=== PATIENT | male | born 1950 | race Caucasian/White ===

== ENCOUNTER 2020-09-18 09:09 | Inpatient (IN) | payer BC, MEDICARE ==
[2020-09-18] MEDS ORDERED: Morphine 2 MG/ML SYRINGE IVPUSH ONE ×2 (09:46→12:13)
[2020-09-18] MEDS ORDERED: Sodium Chloride 0.9% 10 ML Syringe FLUSH PRN (12:10)
[2020-09-18] MEDS ORDERED: Sodium Chloride 0.9% 10 ML SDV IV PRN (12:10)
[2020-09-18] MEDS ORDERED: Sodium Chloride 0.9% 2.5 ML Syringe FLUSH PRN (12:10)
--- NOTE | 2020-09-18 12:53 | PCM.PREANE ---
Preanesthetic Assessment - Anesthesia/Transfusion/Family Hx Anesthesia History: Prior Anesthesia Without Reaction Family History of Anesthesia Reaction: No Transfusion History: Unknown Intubation History: Unknown - Review of Systems General: No Symptoms Pulmonary: No Symptoms Cardiovascular: No Symptoms Gastrointestinal: No Symptoms Neurological: No Symptoms Other: Reports: None - Physical Assessment Vital Signs: Last Vital Signs Temp Pulse 92 09/18/20 09:41 Resp 16 09/18/20 09:41 BP 162/87 H 09/18/20 09:41 Pulse Ox 94 L 09/18/20 09:41 Height: 5 ft Weight: 92.986 kg ASA Class: 3E Mental Status: Alert & Oriented x3 Airway Class: Mallampati = 2 Dentition: Reports: Dentures (upper and lower) Thyro-Mental Finger Breadths: 3 Mouth Opening Finger Breadths: 2 (small mouth) ROM/Head Extension: Limited/Partial Lungs: Clear to Auscultation, Normal Respiratory Effort Cardiovascular: Regular Rate, Regular Rhythm - Lab Values: Laboratory Last Values WBC 9.39 K/uL (4.0-11.0) 09/18/20 10:08 RBC 4.20 M/uL (4.50-5.90) L 09/18/20 10:08 Hgb 10.0 g/dL (13.0-17.0) L 09/18/20 10:08 Hct 33.1 % (38.0-50.0) L 09/18/20 10:08 MCV 78.8 fL (80.0-98.0) L 09/18/20 10:08 MCH 23.8 pg (27.0-32.0) L 09/18/20 10:08 MCHC 30.2 g/dL (31.0-37.0) L 09/18/20 10:08 RDW Std Deviation 46.6 fl (28.0-62.0) 09/18/20 10:08 RDW Coeff of Star 16 % (11.0-15.0) H 09/18/20 10:08 Plt Count 467 K/uL (150-400) H 09/18/20 10:08 MPV 9.90 fL (7.40-12.00) 09/18/20 10:08 Add Manual Diff YES 09/18/20 10:08 Neutrophils % (Manual) 71 % (48.0-80.0) 09/18/20 10:08 Band Neutrophils % 2 % 09/18/20 10:08 Lymphocytes % (Manual) 14 % (16.0-40.0) L 09/18/20 10:08 Monocytes % (Manual) 10 % (0.0-15.0) 09/18/20 10:08 Eosinophils % (Manual) 3 % (0.0-7.0) 09/18/20 10:08 Nucleated RBC % 0.0 /100WBC 09/18/20 10:08 Absolute Seg Neuts 6.7 (1.4-5.7) H 09/18/20 10:08 Band Neutrophils # 0.2 09/18/20 10:08 Lymphocytes # (Manual) 1.3 (0.6-2.4) 09/18/20 10:08 Monocytes # (Manual) 0.9 (0.0-0.8) H 09/18/20 10:08 Eosinophils # (Manual) 0.3 (0.0-0.7) 09/18/20 10:08 Nucleated RBCs # 0 K/uL 09/18/20 10:08 - Allergies Allergies/Adverse Reactions: Allergies Allergy/AdvReac Type Severity Reaction Status Date / Time No Known Allergies Allergy Verified 08/24/15 07:46 - Blood Blood Available: No - Anesthesia Plan Pre-Op Medication Ordered: None - Acknowledgements Anesthesia Type Planned: General Anesthesia Pt an Appropriate Candidate for the Planned Anesthesia: Yes Alternatives and Risks of Anesthesia Discussed w Pt/Guardian: Yes Pt/Guardian Understands and Agrees with Anesthesia Plan: Yes PreAnesthesia Questionnaire Other HEENT History: Tonsillitis Cardiovascular History: Reports: CAD, High Cholesterol, Hypertension, [place], Stents (at age 56, sustained heart atack- [place] since) Other Cardiovascular History: HTN, STENTS, HEART ATTACK Gastrointestinal History: Reports: GERD Genitourinary History: Reports: Other (See Below) (h/o prostate cancer '15 , urinary bleening and retention at present time) Other Genitourinary History: elevated PSA Endocrine/Metabolic History: Reports: Obesity/BMI 30+ (BMI 40.0) Other Endocrine/Metabolic History: BORDERLINE DIABETIC - Past Surgical History HEENT Surgical History: Reports: Tonsillectomy GI Surgical History: Reports: Appendectomy, Colon (colon resection for perforation), Colonoscopy Male Surgical History: Reports: Prostatectomy, Other (See Below) (ureteral stent placed 09/04) - HOME MEDS Home Medications: Home Meds Aspirin [[place] Aspirin EC] 81 mg PO DAILY 08/24/15 [History] Metoprolol Tartrate [Lopressor] 12.5 mg PO DAILY 08/24/15 [History] Olmesartan [Benicar] 20 mg PO DAILY 08/24/15 [History] Pantoprazole Sodium [Protonix] 40 mg PO DAILY 08/24/15 [History] Simvastatin [Zocor] 40 mg PO BEDTIME 08/24/15 [History] Cephalexin [Keflex] 500 mg PO QID #40 cap 08/28/15 [Rx] Hydrocodone/Acetaminophen [Lorcet 5-325 mg Tablet] 1 each PO Q4HR PRN #30 tablet 08/28/15 [Rx] - CURRENT (IN HOUSE) MEDS Current Meds: Current Medications Sodium Chloride (Saline Flush) 10 ml FLUSH ASDIRECTED PRN PRN Reason: Keep Vein Open Sodium Chloride (Saline Flush) 2.5 ml FLUSH ASDIRECTED PRN PRN Reason: Keep Vein Open Sodium Chloride (Normal Saline) 10 ml IV ASDIRECTED PRN PRN Reason: IV Use Discontinued Medications Morphine Sulfate (Morphine) 1 mg IVPUSH ONETIME ONE Stop: 09/18/20 09:47 Last Admin: 09/18/20 11:25 Dose: 1 mg Documented by: Morphine Sulfate (Morphine) 1 mg IVPUSH ONETIME ONE Stop: 09/18/20 12:14
[2020-09-18] MEDS ORDERED: Midazolam 1 MG/ML 2 ML SDV ONE (13:10)
[2020-09-18] MEDS ORDERED: fentaNYL 100 MCG/2 ML SDV ONE ×2 (13:10→15:02)
[2020-09-18] MEDS ORDERED: Propofol 200 MG/20 ML SDV ONE (13:10)
[2020-09-18 13:11] LABS: BLOOD UREA NITROGEN,BUN 26 mg/dL (7.0-18.0); CARBON DIOXIDE,CO2 24.5 mmol/L (21.0-32.0); CHLORIDE,CL 99 mmol/L (98-107); GLUCOSE RANDOM 238 mg/dL (74-106); POTASSIUM,K 3.9 mmol/L (3.5-5.1); SODIUM,NA 135 mmol/L (136-148)
[2020-09-18] MEDS ORDERED: Glycopyrrolate 0.2 MG/ML SDV ONE ×2 (13:13→14:32)
[2020-09-18] MEDS ORDERED: Lidocaine 2% 5 ML SDV ONE (13:13)
[2020-09-18] MEDS ORDERED: Ondansetron 4 MG/2 ML SDV ONE (13:13)
[2020-09-18] MEDS ORDERED: Phenylephrine 1% 10 MG/ML SDV ONE (13:15)
[2020-09-18] MEDS ORDERED: Acetaminophen 1,000 MG in Premix Bag 1 BAG IV PRN (13:24)
[2020-09-18] MEDS ORDERED: Iopamidol 408 MG/ML 20 ML SDV ONE ×2 (14:09→15:23)
[2020-09-18] MEDS ORDERED: ceFAZolin 1 GM Vial ONE (14:16)
[2020-09-18] MEDS ORDERED: Sodium Chloride 0.9% 20 ML ONE (14:16)
[2020-09-18] MEDS ORDERED: Rocuronium Bromide 50 MG/5 ML Syringe ONE ×2 (14:32→15:05)
[2020-09-18] MEDS ORDERED: fentaNYL 250 MCG/5 ML SDV ONE (15:05)
[2020-09-18] MEDS: fentaNYL 100 MCG/2 ML SDV IVPUSH PRN ×2 (17:25→17:32)
--- NOTE | 2020-09-18 17:48 | PCM.POSTAN ---
POST ANESTHESIA ASSESSMENT - MENTAL STATUS Mental Status: Alert, Oriented - VITAL SIGNS Vital Signs: Last Vital Signs Temp 36.9 C 09/18/20 17:00 Pulse 76 09/18/20 17:40 Resp 16 09/18/20 17:40 BP 127/68 09/18/20 17:40 Pulse Ox 97 09/18/20 17:40 - RESPIRATORY Respiratory Status: Respiratory Rate WNL, Airway Patent, O2 Saturation Stable - CARDIOVASCULAR CV Status: Pulse Rate WNL, Blood Pressure Stable - GASTROINTESTINAL GI Status: No Symptoms - PAIN Pain Score: 3 - POST OP HYDRATION Hydration Status: Adequate & Stable - OBSERVATIONS Free Text/Narrative:: No anesthesia problems
[2020-09-18] MEDS: ceFAZolin 1 GM in Premix Bag 1 BAG IV SCH (19:02)
[2020-09-18] MEDS: Acetaminophen/oxyCODONE 325-5 MG Tab PO PRN (20:38)
[2020-09-18] MEDS: Docusate Sodium 100 MG Cap PO SCH (20:39)
[2020-09-18] MEDS: Bacitracin Oint 28.35 GM Tube TOP SCH (21:55)
[2020-09-19] MEDS: fentaNYL 100 MCG/2 ML SDV IVPUSH PRN ×2 (00:07→04:12)
[2020-09-19] MEDS: ceFAZolin 1 GM in Premix Bag 1 BAG IV SCH ×3 (00:20→19:26)
[2020-09-19] MEDS: Lactated Ringers 1,000 ML IV SCH (00:21)
[2020-09-19] MEDS: Acetaminophen/oxyCODONE 325-5 MG Tab PO PRN ×4 (02:28→22:10)
[2020-09-19] MEDS: Bacitracin Oint 28.35 GM Tube TOP SCH ×3 (05:52→22:12)
[2020-09-19] MEDS ORDERED: Metoprolol Tartrate 25 MG Tab PO SCH (09:00)
--- NOTE | 2020-09-19 09:21 | HP ---
DATE OF : 1950 PRIMARY CARE PHYSICIAN: None PCP HISTORY OF PRESENT ILLNESS: A 70-year-old. He was seen initially in the office yesterday with gross hematuria that apparently had started approximately 10 days ago. He had aortofemoral stents put in in [place] and was catheterized the following day because he could not void. The catheter was taken out, and he still could not void, so urologist was called and there was difficulty putting a catheter in so the urethra had to be dilated, according to the patient, and eventually a catheter was placed in, and he was sent home. A few days following that, he actually presented to the emergency room in [place], where a three-way irrigation was started. Again, there was difficulty putting a catheter in. I saw him in the office yesterday. He did have a catheter in that was erratic in the way it was draining, so I put a six-hole catheter in the bladder and irrigated blood clots out of the bladder and then sent him home because he did not have difficulty voiding on his own prior to all this. In 2014, he had radical prostatectomy that was followed with radiation therapy and his PSA is 0, so there is no reason to suspect recurrent CA. He also had a CT scan in May that included abdomen and pelvis that showed a normal bladder wall. So he was admitted to the hospital here after he was having difficulty draining his bladder with the catheter, and he was kept overnight in [place] with a TUR drip running that required frequent irrigation of the three-way catheter and so far that was the reason for his admission. Earlier today, I put a six-hole catheter in, and I could not get very far with that. Eventually, the fluid would go in, but it would not come back. So I decided to take a look inside his bladder. MEDICAL HISTORY: Radical prostatectomy, vascular disease, [place] in 1956. He also had a cardiac stent. He has not been on anticoagulants. PHYSICAL EXAMINATION: GENERAL: He is alert and oriented. VITAL SIGNS: Normal. His hemoglobin this morning was 10. HEART: Normal sinus rhythm. LUNGS: Clear. ABDOMEN: Soft. DIAGNOSIS: Gross hematuria. PLAN: Cystoscopy and evacuation of clots. DENISHA / VITA /[id number]
--- NOTE | 2020-09-19 09:34 | PCM48HPAN ---
Post Anesthesia Note - EVALUATION WITHIN 48HRS OF ANESTHETIC Vital Signs in Normal Range: Yes Patient Participated in Evaluation: Yes Respiratory Function Stable: Yes Airway Patent: Yes Cardiovascular Function Stable: Yes Hydration Status Stable: Yes Pain Control Satisfactory: Yes Nausea and Vomiting Control Satisfactory: Yes Mental Status Recovered: Yes Vital Signs: Last Vital Signs Temp 37.9 C 09/19/20 07:30 Pulse 96 09/19/20 07:30 Resp 15 09/19/20 07:30 BP 131/62 09/19/20 07:30 Pulse Ox 92 L 09/19/20 07:30
[2020-09-19] MEDS: Docusate Sodium 100 MG Cap PO SCH ×2 (09:39→20:48)
[2020-09-19] MEDS: Pantoprazole 40 MG Tab.CR PO SCH (16:07)
[2020-09-19] MEDS ORDERED: Olmesartan 20 MG Tab PO SCH (17:45)
[2020-09-19] MEDS: Aspirin 81 MG Tab.EC PO SCH (18:33)
[2020-09-19] MEDS: Simvastatin 40 MG Tab PO SCH (20:48)
[2020-09-20] MEDS: ceFAZolin 1 GM in Premix Bag 1 BAG IV SCH ×3 (00:28→17:53)
[2020-09-20] MEDS: Lactated Ringers 1,000 ML IV SCH (00:30)
[2020-09-20] MEDS: Acetaminophen/oxyCODONE 325-5 MG Tab PO PRN ×3 (05:25→19:44)
[2020-09-20] MEDS: Bacitracin Oint 28.35 GM Tube TOP SCH ×3 (05:26→21:03)
[2020-09-20 06:30] LABS: CARBON DIOXIDE,CO2 28.9 mmol/L (21.0-32.0); POTASSIUM,K 3.6 mmol/L (3.5-5.1)
[2020-09-20] MEDS: Pantoprazole 40 MG Tab.CR PO SCH (08:57)
[2020-09-20] MEDS: Docusate Sodium 100 MG Cap PO SCH ×2 (08:57→21:03)
[2020-09-20] MEDS ORDERED: Metoprolol Succinate 25 MG Tab.ER PO SCH ×2 (09:00→10:10)
[2020-09-20] MEDS: Aspirin 81 MG Tab.EC PO SCH (09:08)
--- NOTE | 2020-09-20 11:30 | PCM.SN.2 ---
- Free Text/Narrative Note: 09/19 Stable , no more active bleeding, hgb 10. 09/20 stable hgb 7.8, urine bloody plan, transfuse 2 units of rbcs, keep him until bleeding stays away
[2020-09-20] MEDS: Belladonna Alkaloids/Opium 16.2-30 MG Supp RECTAL PRN (17:52)
[2020-09-20] MEDS: Simvastatin 40 MG Tab PO SCH (21:02)
[2020-09-21] MEDS: ceFAZolin 1 GM in Premix Bag 1 BAG IV SCH ×3 (00:22→16:45)
[2020-09-21] MEDS: Lactated Ringers 1,000 ML IV SCH ×3 (00:22→16:46)
[2020-09-21] MEDS: Acetaminophen/oxyCODONE 325-5 MG Tab PO PRN (02:34)
[2020-09-21] MEDS: Bacitracin Oint 28.35 GM Tube TOP SCH ×3 (05:34→22:41)
[2020-09-21] MEDS: Docusate Sodium 100 MG Cap PO SCH ×2 (08:22→20:33)
[2020-09-21] MEDS: Pantoprazole 40 MG Tab.CR PO SCH (08:22)
[2020-09-21] MEDS: Metoprolol Succinate 25 MG Tab.ER PO SCH (08:23)
[2020-09-21] MEDS: Aspirin 81 MG Tab.EC PO SCH (08:23)
[2020-09-21] MEDS: Simvastatin 40 MG Tab PO SCH (20:32)
[2020-09-22] MEDS: ceFAZolin 1 GM in Premix Bag 1 BAG IV SCH ×2 (01:58→11:00)
[2020-09-22] MEDS: Bacitracin Oint 28.35 GM Tube TOP SCH ×2 (07:00→14:12)
[2020-09-22] MEDS: Aspirin 81 MG Tab.EC PO SCH (10:53)
[2020-09-22] MEDS: Docusate Sodium 100 MG Cap PO SCH ×2 (10:54→20:56)
[2020-09-22] MEDS: Pantoprazole 40 MG Tab.CR PO SCH (10:54)
[2020-09-22] MEDS: Metoprolol Succinate 25 MG Tab.ER PO SCH (10:54)
--- NOTE | 2020-09-22 12:14 | OR ---
SURGEON: Murphy Martin M.D. DATE OF PROCEDURE: 09/18/2020 PRIMARY SURGEON: Murphy Martin M.D. GENETICS TEACHER: Dariusz Dahl MD PREOPERATIVE DIAGNOSES: 1. Gross hematuria. 2. Disrupted bladder neck. 3. Perforated bladder. POSTOPERATIVE DIAGNOSES: 1. Gross hematuria. 2. Disrupted bladder neck. 3. Perforated bladder. OPERATIONS: 1. Attempted evacuation of clots out of the bladder, unsuccessful. 2. Cystotomy. 3. Evacuation of clots. 4. Placement of a Alcantar catheter. DESCRIPTION: The patient was under general anesthesia. He was in the dorsal lithotomy position and prepped and draped with sterile drapes. Cystourethroscopy was done using a 22-Cypriot cystoscope. The urethra was disrupted just before the neck of the bladder. The neck of the bladder was also disrupted. The inside of the bladder was also disrupted. The inside of the bladder appeared to be full of blood clots. Attempted evacuation of the blood clots through the scope was not successful, could not get hardly any of the blood clots out. So while the scope was still in the bladder, I put a guidewire, over which I placed a 3-way catheter after I made an additional opening at the tip of the catheter. With that and the balloon then inflated with 20 mL, the patient was then placed in the supine position. The anterior abdominal was prepped and draped with sterile drapes. A suprapubic incision was made and carried down to the bladder, which was now distended. Approximately 600 mL of blood clots was recovered from the bladder until the bladder was completely without any blood clots. The bladder was then closed using 3-0 chromic for the mucosa and 2-0 chromic for the muscularis adventitia. The fascia was closed with interrupted silk sutures. The subcutaneous tissue was approximated with 3-0 chromic. Skin was closed with otto. Blood loss from the procedure was minimal, may be 10 mL. The patient tolerated the procedure well and was moved to the recovery room in good condition. DENISHA / VITA /[id number]
[2020-09-22] MEDS ORDERED: metroNIDAZOLE 250 MG Tab PO SCH (12:30)
[2020-09-22] MEDS: Simvastatin 40 MG Tab PO SCH (20:56)
[2020-09-23] MEDS: Belladonna Alkaloids/Opium 16.2-30 MG Supp RECTAL PRN ×3 (00:16→20:27)
[2020-09-23] MEDS: Bacitracin Oint 28.35 GM Tube TOP SCH ×4 (00:26→21:20)
--- NOTE | 2020-09-23 09:07 | PCM.SN.2 ---
- Free Text/Narrative Note: 09/21 Continues to require occasional irrigation of his bladder , stable otherwise, hgb 10 after 2 units of blood 09/22 no significant change, still requiring occasional irrigation. 09/23 should consider swing bed for him, stable but not free of small blood clots requiring occasional irrigation.
[2020-09-23] MEDS: Metoprolol Succinate 25 MG Tab.ER PO SCH (09:18)
[2020-09-23] MEDS: Pantoprazole 40 MG Tab.CR PO SCH (09:18)
[2020-09-23] MEDS: Docusate Sodium 100 MG Cap PO SCH ×2 (09:18→20:06)
[2020-09-23] MEDS: Aspirin 81 MG Tab.EC PO SCH (09:18)
--- NOTE | 2020-09-23 16:31 | CR ---
INDICATION: Stone TECHNIQUE: Intraoperative C-arm fluoroscopy for ureteroscopy. IMPRESSION: Intraoperative C-arm fluoroscopy was provided. Fluoroscopy time 11.8 seconds. Four images were captured. Dictated by Yoav Jeffrey MD @ Sep 23 2020 4:28PM Signed by Dr. Yoav Jeffrey @ Sep 23 2020 4:29PM
[2020-09-23] MEDS ORDERED: Morphine 2 MG/ML SYRINGE IVPUSH SCH (18:30)
[2020-09-23] MEDS: Simvastatin 40 MG Tab PO SCH (20:07)
[2020-09-23] MEDS: Morphine 2 MG/ML SYRINGE IVPUSH PRN ×2 (21:10→23:13)
[2020-09-24] MEDS: Morphine 2 MG/ML SYRINGE IVPUSH PRN ×7 (01:22→15:47)
[2020-09-24] MEDS: Bacitracin Oint 28.35 GM Tube TOP SCH ×3 (05:45→21:50)
[2020-09-24] MEDS: Pantoprazole 40 MG Tab.CR PO SCH (08:46)
[2020-09-24] MEDS: Metoprolol Succinate 25 MG Tab.ER PO SCH (08:46)
[2020-09-24] MEDS: Aspirin 81 MG Tab.EC PO SCH (08:46)
[2020-09-24] MEDS: Docusate Sodium 100 MG Cap PO SCH ×2 (08:48→21:49)
[2020-09-24] MEDS ORDERED: Morphine 2 MG/ML SYRINGE IVPUSH STA (09:14)
[2020-09-24] MEDS: Belladonna Alkaloids/Opium 16.2-30 MG Supp RECTAL PRN (12:07)
--- NOTE | 2020-09-24 17:49 | PCM.PREANE ---
Preanesthetic Assessment - Anesthesia/Transfusion/Family Hx Anesthesia History: Prior Anesthesia Without Reaction Family History of Anesthesia Reaction: No Transfusion History: Unknown Intubation History: Unknown - Review of Systems General: No Symptoms Pulmonary: No Symptoms Cardiovascular: No Symptoms (Denies chest pain. 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[employer].) Gastrointestinal: No Symptoms Neurological: No Symptoms Other: Reports: None - Physical Assessment NPO Status Date: 09/24/20 NPO Status Time: 08:00 (eggs 0800,jello 1100) Vital Signs: Last Vital Signs Temp 36.7 C 09/24/20 15:00 Pulse 80 09/24/20 15:00 Resp 16 09/24/20 15:00 BP 137/68 09/24/20 15:00 Pulse Ox 96 09/24/20 15:00 Height: 1.52 m Weight: 92.986 kg ASA Class: 3E Airway Class: Mallampati = 3 Dentition: Reports: Edentulous ROM/Head Extension: Full Lungs: Clear to Auscultation Cardiovascular: Regular Rate - Lab Values: Laboratory Last Values WBC 10.40 K/uL (4.0-11.0) 09/20/20 05:37 RBC 3.29 M/uL (4.50-5.90) L 09/20/20 05:37 Hgb 10.0 g/dL (13.0-17.0) L 09/23/20 05:28 Hct 32.8 % (38.0-50.0) L 09/23/20 05:28 MCV 79.9 fL (80.0-98.0) L 09/20/20 05:37 MCH 23.7 pg (27.0-32.0) L 09/20/20 05:37 MCHC 29.7 g/dL (31.0-37.0) L 09/20/20 05:37 RDW Std Deviation 47.5 fl (28.0-62.0) 09/20/20 05:37 RDW Coeff of Star 16 % (11.0-15.0) H 09/20/20 05:37 Plt Count 460 K/uL (150-400) H 09/20/20 05:37 MPV 10.10 fL (7.40-12.00) 09/20/20 05:37 Add Manual Diff YES 09/20/20 05:37 Neutrophils % (Manual) 75 % (48.0-80.0) 09/20/20 05:37 Band Neutrophils % 1 % 09/20/20 05:37 Lymphocytes % (Manual) 15 % (16.0-40.0) L 09/20/20 05:37 Monocytes % (Manual) 5 % (0.0-15.0) 09/20/20 05:37 Eosinophils % (Manual) 3 % (0.0-7.0) 09/20/20 05:37 Basophils % (Manual) 1 % (0.0-1.5) 09/20/20 05:37 Nucleated RBC % 0.0 /100WBC 09/20/20 05:37 Absolute Seg Neuts 7.8 (1.4-5.7) H 09/20/20 05:37 Band Neutrophils # 0.1 09/20/20 05:37 Lymphocytes # (Manual) 1.6 (0.6-2.4) 09/20/20 05:37 Monocytes # (Manual) 0.5 (0.0-0.8) 09/20/20 05:37 Eosinophils # (Manual) 0.3 (0.0-0.7) 09/20/20 05:37 Basophils # (Manual) 0.1 (0.0-0.1) 09/20/20 05:37 Nucleated RBCs # 0 K/uL 09/20/20 05:37 Sodium 136 mmol/L (136-148) 09/20/20 05:37 Potassium 3.6 mmol/L (3.5-5.1) 09/20/20 05:37 Chloride 101 mmol/L (98-107) 09/20/20 05:37 Carbon Dioxide 28.9 mmol/L (21.0-32.0) 09/20/20 05:37 Anion Gap 9.7 09/20/20 05:37 BUN 26 mg/dL (7.0-18.0) H 09/18/20 12:25 Creatinine 0.9 mg/dL (0.8-1.3) 09/18/20 12:25 Est Cr Clr Drug Dosing 53.24 mL/min 09/18/20 12:25 Estimated GFR (MDRD) > 60.0 ml/min 09/18/20 12:25 Glucose 238 mg/dL (74-106) H 09/18/20 12:25 Calcium 9.0 mg/dL (8.5-10.1) 09/18/20 12:25 SARS-CoV-2 RNA (LUIS ALBERTO) NEGATIVE (NEGATIVE) 09/18/20 12:45 Blood Type O POSITIVE 09/18/20 12:25 Antibody Screen NEGATIVE 09/18/20 12:25 Crossmatch See Detail 09/18/20 12:25 - Allergies Allergies/Adverse Reactions: Allergies Allergy/AdvReac Type Severity Reaction Status Date / Time No Known Allergies Allergy Verified 09/24/20 15:58 - Blood Blood Available: No - Anesthesia Plan Free Text/Narrative:: GA with ETT - Acknowledgements Anesthesia Type Planned: General Anesthesia Pt an Appropriate Candidate for the Planned Anesthesia: Yes Alternatives and Risks of Anesthesia Discussed w Pt/Guardian: Yes Pt/Guardian Understands and Agrees with Anesthesia Plan: Yes Additional Comments: Patient states he last saw 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 Samano?) at [facility] last year and denies any changes in his history such as shortness of breath or chest pain. PreAnesthesia Questionnaire Other HEENT History: Tonsillitis Cardiovascular History: Reports: CAD, High Cholesterol, Hypertension, [place], Stents (at age 56, sustained heart atack- [place] since) Other Cardiovascular History: HTN, STENTS, HEART ATTACK Gastrointestinal History: Reports: GERD Genitourinary History: Reports: Other (See Below) (h/o prostate cancer '15 , urinary bleening and retention at present time) Other Genitourinary History: elevated PSA Endocrine/Metabolic History: Reports: Obesity/BMI 30+ (BMI 40.0) Other Endocrine/Metabolic History: BORDERLINE DIABETIC - Past Surgical History HEENT Surgical History: Reports: Tonsillectomy GI Surgical History: Reports: Appendectomy, Colon (colon resection for perforation), Colonoscopy Male Surgical History: Reports: Prostatectomy, Other (See Below) (ureteral stent placed 09/04) - HOME MEDS Home Medications: Home Meds Aspirin [[place] Aspirin EC] 81 mg PO DAILY 08/24/15 [History] Pantoprazole Sodium [Protonix] 40 mg PO DAILY 08/24/15 [History] Simvastatin [Zocor] 40 mg PO BEDTIME 08/24/15 [History] Cephalexin [Keflex] 500 mg PO QID #40 cap 08/28/15 [Rx] Hydrocodone/Acetaminophen [Lorcet 5-325 mg Tablet] 1 each PO Q4HR PRN #30 tablet 08/28/15 [Rx] Metoprolol Succinate [Toprol XL] 25 mg PO DAILY 09/20/20 [History] - CURRENT (IN HOUSE) MEDS Current Meds: Current Medications Aspirin (Halfprin) 81 mg PO DAILY [facility] Last Admin: 09/24/20 08:46 Dose: 81 mg Documented by: Bacitracin (Bacitracin Oint) 1 gm TOP TID [facility] Last Admin: 09/24/20 13:48 Dose: 1 applic Documented by: Belladonna Alkaloids/Opium (B & O Supprettes No. 15a) 1 supp RECTAL Q6H PRN PRN Reason: Bladder Spasms Last Admin: 09/24/20 12:07 Dose: 1 supp Documented by: Docusate Sodium (Colace) 100 mg PO BID [facility] Last Admin: 09/24/20 08:48 Dose: 100 mg Documented by: Acetaminophen 1,000 mg/ Premix 100 mls @ 400 mls/hr IV Q6H PRN PRN Reason: Pain Last Admin: 09/18/20 17:33 Dose: 400 mls/hr Documented by: Metoprolol Succinate (Toprol Xl) 12.5 mg PO DAILY [facility] Last Admin: 09/24/20 08:46 Dose: 12.5 mg Documented by: Morphine Sulfate (Morphine) 1 mg IVPUSH Q2H PRN PRN Reason: Pain Last Admin: 09/24/20 15:47 Dose: 1 mg Documented by: Oxycodone/Acetaminophen (Percocet 325-5 Mg) 1 tab PO Q6H PRN PRN Reason: Abdominal Pain Last Admin: 09/21/20 02:34 Dose: 1 tab Documented by: Pantoprazole Sodium (Protonix) 40 mg PO DAILY [facility] Last Admin: 09/24/20 08:46 Dose: 40 mg Documented by: Simvastatin (Zocor) 40 mg PO BEDTIME [facility] Last Admin: 09/23/20 20:07 Dose: 40 mg Documented by: Sodium Chloride (Saline Flush) 10 ml FLUSH ASDIRECTED PRN PRN Reason: Keep Vein Open Sodium Chloride (Saline Flush) 2.5 ml FLUSH ASDIRECTED PRN PRN Reason: Keep Vein Open Sodium Chloride (Normal Saline) 10 ml IV ASDIRECTED PRN PRN Reason: IV Use Discontinued Medications Cefazolin Sodium (Ancef) Confirm Administered Dose 2 gm .ROUTE .STK-MED ONE Stop: 09/18/20 14:17 Fentanyl (Sublimaze) Confirm Administered Dose 100 mcg .ROUTE .STK-MED ONE Stop: 09/18/20 13:11 Fentanyl (Sublimaze) 50 mcg IVPUSH Q5M PRN PRN Reason: Pain Last Admin: 09/18/20 17:32 Dose: 50 mcg Documented by: Fentanyl (Sublimaze) Confirm Administered Dose 100 mcg .ROUTE .STK-MED ONE Stop: 09/18/20 15:03 Fentanyl (Sublimaze) Confirm Administered Dose 250 mcg .ROUTE .STK-MED ONE Stop: 09/18/20 15:06 Fentanyl (Sublimaze) 50 - 100 mcg IVPUSH Q1H PRN PRN Reason: Pain (severe 7-10) Last Admin: 09/19/20 04:12 Dose: 50 mcg Documented by: Glycopyrrolate (Robinul) Confirm Administered Dose 0.2 mg .ROUTE .STK-MED ONE Stop: 09/18/20 13:14 Glycopyrrolate (Robinul) Confirm Administered Dose 0.6 mg .ROUTE .STK-MED ONE Stop: 09/18/20 14:33 Sodium Chloride (Normal Saline) Confirm Administered Dose 20 mls @ as directed .ROUTE .STK-MED ONE Stop: 09/18/20 14:17 Cefazolin Sodium/Dextrose 1 gm (/ Premix) 50 mls @ 100 mls/hr IV Q8H [facility] Last Admin: 09/22/20 11:00 Dose: 100 mls/hr Documented by: Lactated Ringer's (Ringers, Lactated) 1,000 mls @ 150 mls/hr IV ASDIRECTED [facility] Last Admin: 09/21/20 16:46 Dose: 150 mls/hr Documented by: Iopamidol (Isovue-M 200 (41%)) Confirm Administered Dose 40 ml .ROUTE .STK-MED ONE Stop: 09/18/20 14:10 Iopamidol (Isovue-M 200 (41%)) Confirm Administered Dose 40 ml .ROUTE .STK-MED ONE Stop: 09/18/20 15:24 Lidocaine (Xylocaine-Mpf 2%) Confirm Administered Dose 5 ml .ROUTE .STK-MED ONE Stop: 09/18/20 13:14 Metoprolol Succinate (Toprol Xl) 25 mg PO DAILY [facility] Last Admin: 09/20/20 08:58 Dose: 12.5 mg Documented by: Metoprolol Tartrate (Lopressor) 12.5 mg PO DAILY [facility] Last Admin: 09/19/20 09:39 Dose: 12.5 mg Documented by: Midazolam HCl (Versed 1 Mg/Ml) Confirm Administered Dose 2 mg .ROUTE .STK-MED ONE Stop: 09/18/20 13:11 Morphine Sulfate (Morphine) 1 mg IVPUSH ONETIME ONE Stop: 09/18/20 09:47 Last Admin: 09/18/20 11:25 Dose: 1 mg Documented by: Morphine Sulfate (Morphine) 1 mg IVPUSH ONETIME ONE Stop: 09/18/20 12:14 Last Admin: 09/18/20 12:20 Dose: Not Given Documented by: Morphine Sulfate (Morphine) 1 mg IVPUSH Q2H [facility] Last Admin: 09/23/20 18:40 Dose: 1 mg Documented by: Morphine Sulfate (Morphine) 1 mg IVPUSH STAT STA Stop: 09/24/20 09:15 Last Admin: 09/24/20 09:22 Dose: 1 mg Documented by: Olmesartan (Benicar) 20 mg PO DAILY [facility] Last Admin: 09/19/20 18:27 Dose: 20 mg Documented by: Ondansetron HCl (Zofran) Confirm Administered Dose 4 mg .ROUTE .STK-MED ONE Stop: 09/18/20 13:14 Phenylephrine HCl (Alfonso-Synephrine) Confirm Administered Dose 10 mg .ROUTE .STK- MED ONE Stop: 09/18/20 13:16 Propofol (Diprivan 20 Ml) Confirm Administered Dose 200 mg .ROUTE .STK-MED ONE Stop: 09/18/20 13:11 Rocuronium Mather (Rocuronium Mather) Confirm Administered Dose 50 mg .ROUTE .STK-MED ONE Stop: 09/18/20 14:33 Rocuronium Mather (Rocuronium Mather) Confirm Administered Dose 50 mg .ROUTE .STK-MED ONE Stop: 09/18/20 15:06
[2020-09-24] MEDS ORDERED: fentaNYL 250 MCG/5 ML SDV ONE (18:00)
[2020-09-24] MEDS ORDERED: Propofol 200 MG/20 ML SDV ONE (18:00)
[2020-09-24] MEDS ORDERED: Midazolam 1 MG/ML 2 ML SDV ONE (18:01)
[2020-09-24] MEDS ORDERED: Succinylcholine/Sod PF 100 MG/5 ML SYRINGE IV ONE (18:03)
[2020-09-24] MEDS ORDERED: Ondansetron 4 MG/2 ML SDV ONE (18:03)
[2020-09-24] MEDS ORDERED: Rocuronium Bromide 50 MG/5 ML Syringe ONE (18:03)
[2020-09-24] MEDS ORDERED: Dexamethasone 4 MG/ML 5 ML MDV ONE (18:03)
[2020-09-24] MEDS ORDERED: Phenylephrine 1% 10 MG/ML SDV ONE (18:05)
[2020-09-24] MEDS ORDERED: ceFAZolin/Dextrose,Iso-Osmotic 2 GM/50 ML Duplex Bag IV ONE (18:37)
[2020-09-24] MEDS ORDERED: Glycopyrrolate 0.2 MG/ML SDV ONE (18:47)
[2020-09-24] MEDS ORDERED: Dexamethasone 4 MG/ML SDV ONE (19:56)
--- NOTE | 2020-09-24 19:56 | PCM.POSTAN ---
POST ANESTHESIA ASSESSMENT - MENTAL STATUS Mental Status: Alert, Oriented - VITAL SIGNS Vital Signs: Last Vital Signs Temp 37.4 C 09/24/20 19:27 Pulse 79 09/24/20 19:43 Resp 17 09/24/20 19:43 BP 127/61 09/24/20 19:43 Pulse Ox 95 09/24/20 19:43 - RESPIRATORY Respiratory Status: Respiratory Rate WNL, Airway Patent, O2 Saturation Stable Free Text/Narrative:: O2 per NC 2-3 L - CARDIOVASCULAR CV Status: Pulse Rate WNL, Blood Pressure Stable - GASTROINTESTINAL GI Status: No Symptoms - PAIN Free Text/Narrative:: Denies pain - POST OP HYDRATION Hydration Status: Adequate & Stable
[2020-09-24] MEDS: Lactated Ringers 1,000 ML IV SCH (20:30)
--- NOTE | 2020-09-24 21:19 | OR ---
SURGEON: Murphy Martin M.D. DATE OF PROCEDURE: 09/24/2020 PREOPERATIVE DIAGNOSIS: Persistent gross hematuria. POSTOPERATIVE DIAGNOSIS: Radiation cystitis. DESCRIPTION OF PROCEDURE: The patient was given general anesthesia. He was placed in the dorsal lithotomy position, prepped and draped in sterile drapes. Cystourethroscopy was done. The bladder again had a fair amount of blood clots. These were all irrigated using the Ellik evacuator and all the clots were out. I was able to see the base of the bladder, it shows evidence of radiation cystitis. There were several bleeders involving primarily the neck of the bladder and the area immediately behind it. These had to be fulgurated. When all that was done, I placed a 22 three-way catheter in the bladder and started the TUR drip. The amount of blood clots that were removed from the bladder was approximately between 60 and 100 mL. The patient tolerated the procedure well. He was sent back to recovery room in stable condition. PLAN: We will start him on dexamethasone 4 mg IV q.6 hours and look for a place that has hyperbaric oxygen treatment. DENISHA / VITA /[id number]
[2020-09-24] MEDS: Simvastatin 40 MG Tab PO SCH (21:49)
[2020-09-25] MEDS: Dexamethasone 4 MG/ML SDV IVPUSH SCH ×3 (02:50→15:47)
[2020-09-25] MEDS: Lactated Ringers 1,000 ML IV SCH ×2 (05:18→13:30)
[2020-09-25] MEDS: Bacitracin Oint 28.35 GM Tube TOP SCH ×2 (05:19→14:51)
[2020-09-25 07:21] LABS: BLOOD UREA NITROGEN,BUN 11 mg/dL (7.0-18.0); CARBON DIOXIDE,CO2 26.9 mmol/L (21.0-32.0); CHLORIDE,CL 98 mmol/L (98-107); GLUCOSE RANDOM 364 mg/dL (74-106); POTASSIUM,K 4.7 mmol/L (3.5-5.1); SODIUM,NA 133 mmol/L (136-148)
[2020-09-25] MEDS: Pantoprazole 40 MG Tab.CR PO SCH (08:57)
[2020-09-25] MEDS: Metoprolol Succinate 25 MG Tab.ER PO SCH (08:57)
[2020-09-25] MEDS: Aspirin 81 MG Tab.EC PO SCH (08:57)
[2020-09-25] MEDS: Docusate Sodium 100 MG Cap PO SCH (08:57)
--- NOTE | 2020-09-25 09:53 | PCM48HPAN ---
Post Anesthesia Note - EVALUATION WITHIN 48HRS OF ANESTHETIC Vital Signs in Normal Range: Yes Patient Participated in Evaluation: Yes Respiratory Function Stable: Yes Airway Patent: Yes Cardiovascular Function Stable: Yes Hydration Status Stable: Yes Pain Control Satisfactory: Yes Nausea and Vomiting Control Satisfactory: Yes Mental Status Recovered: Yes Vital Signs: Last Vital Signs Temp 2.7 C L 09/25/20 07:35 Pulse 97 09/25/20 08:57 Resp 16 09/25/20 07:35 BP 104/48 L 09/25/20 08:57 Pulse Ox 92 L 09/25/20 07:35 - COMMENTS/OBSERVATIONS Free Text/Narrative:: Denies any complaints. States he is not having any pain.
--- NOTE | 2020-09-25 10:11 | PCM.SN.2 ---
- Free Text/Narrative Note: 09/24 cystoscopy showed radiation cystitis he received dexamethason 4 mg times 2 09/25 otto removed wound is ok, catheter removed
[2020-09-26] MEDS: Bacitracin Oint 28.35 GM Tube TOP SCH ×2 (00:47→07:04)
[2020-09-26] MEDS: Docusate Sodium 100 MG Cap PO SCH ×2 (00:47→08:39)
[2020-09-26] MEDS: Simvastatin 40 MG Tab PO SCH (00:47)
[2020-09-26] MEDS: Pantoprazole 40 MG Tab.CR PO SCH (08:39)
[2020-09-26] MEDS: Metoprolol Succinate 25 MG Tab.ER PO SCH (08:39)
[2020-09-26] MEDS: Aspirin 81 MG Tab.EC PO SCH (08:39)
[2020-09-26 10:20] VITALS: BP 125/71; PULSE 81
--- NOTE | 2020-09-28 07:52 | DISCH ---
DATE OF DISCHARGE: 09/26/2020 PRIMARY CARE PHYSICIAN: None PCP He presented to the office with gross hematuria. The patient had been to [place] few days prior, where he had bilateral femoral stents. He was not on blood thinner. He had a catheter placed in postop in [place] and apparently there was difficulty placing that catheter in. In the office, I irrigated his bladder to the point where I thought he would be okay; however, the following day, he was back with the same problem. He was admitted to the hospital. Three- way catheter was placed in, TUR drip was started. Hemoglobin at that time was stable. The bleeding continues. He was taken to the operating room on 09/18, where I ended up having to open his bladder through a cystotomy to get approximately 1.5 units or more of blood clots out of the bladder. It was not clear at that time as what the source of the bleeding was. I suspect it was the false passage as the cystoscopy that was done had indicated. The disruption was significant. A three-way catheter again was placed and TUR drip was started and that was continued for 6 days. In the meantime, hemoglobin dropped to 7.8 and he received 2 units of blood. At that point, when the bleeding did not stop, I had to come back to the operating room on 09/24. Cystoscopy showed the bleeding not to be coming from the false passage, which has started to heal by diverting the urine out, but it was coming from the neck of the bladder and the trigone with strong evidence of radiation cystitis. Postop, he was given dexamethasone 4 mg IV and had another dose approximately 8 hours later. He was then maintained on 0.5 mg of dexamethasone twice a day. He did well with that. The bleeding stopped. He is able to pass his urine. He has adequate control, occasionally urgency which results in incontinence. At the time of discharge, his hemoglobin was 10.2 on 09/25/2020. His vital signs are normal. He feels well. The wound is healing well. The otto are removed. He is instructed to drink plenty of water and to see me as needed. His followup from his prostate CA shows good control. DENISHA / VITA /[id number]
== END 2020-09-26 11:50 | disposition home or self-care (01) | DRG 446 ==
LOC: MW.MS 09:09 → OBSVTOIN 09:47 → MW.MS 09:47
PROVIDERS: ADMIT Urology; ATTEND Urology
PROC: 0TCB8ZZ Extirpation of Matter from Bladder, Via Natural or Artificial Opening Endoscopic (ICD-10-PCS; principal; 2020-09-18)
PROC: 0T9B80Z Drainage of Bladder with Drainage Device, Via Natural or Artificial Opening Endoscopic (ICD-10-PCS; 2020-09-18)
PROC: 30233N1 Transfusion of Nonautologous Red Blood Cells into Peripheral Vein, Percutaneous Approach (ICD-10-PCS; 2020-09-22)
PROC: 0T5C8ZZ Destruction of Bladder Neck, Via Natural or Artificial Opening Endoscopic (ICD-10-PCS; 2020-09-24)
DX: N30.41 Irradiation cystitis with hematuria (principal); N32.89 Other specified disorders of bladder; Z20.828 Contact with and (suspected) exposure to other viral communicable diseases; I25.2 Old myocardial infarction; Z95.5 Presence of coronary angioplasty implant and graft
CPT/HCPCS: 36415; 36430; 51702; 80048; 80051; 85014; 85018; 85025; 86850; 86900; 86901; 86920; 86921; 86922; 87324; 88304; A9270-GY; C1769; J0131; J0330; J0690; J1100; J2001; J2250; J2270; J2370; J2405; J2704; J3010; J3490; J7120; J8540; P9016; Q9966; U0002